=== PATIENT | male | born 1970 | race Caucasian/White ===

== ENCOUNTER → 2019-06-17 | Outpatient (CLI) | payer OTHER | END | disposition home or self-care (01) | LOC: LAB 17:40 → LAB SHORT 17:40 | DX: H10.33 Unspecified acute conjunctivitis, bilateral (principal) | CPT/HCPCS: 87070; 87186 ==

== ENCOUNTER 2020-07-29 21:58 | Observation (INO) | payer OTHER ==
[~2020-07-29] VITALS: Ht 180.3 cm; Wt 108.9 kg
[2020-07-29 23:17] LABS: BASOPHILS ABSOLUTE AUTO 0.05 K/mm3 (0.00-0.23); BASOPHILS PERCENT AUTO 1 % (0-2); EOSINOPHILS ABSOLUTE AUTO 0.18 K/mm3 (0.00-0.68); EOSINOPHILS PERCENT AUTO 2 % (0-6); Hematocrit 41.3 % (37.0-53.0); Hemoglobin 14.7 g/dL (13.5-17.5); IMMATURE GRAN ABSOLUTE AUTO 0.04 K/mm3 (0.00-0.10); IMMATURE GRAN PERCENT AUTO 0 % (0-1); LYMPHOCYTES ABSOLUTE AUTO 2.13 K/mm3 (0.84-5.20); LYMPHOCYTES PERCENT AUTO 21 % (21-46); MONOCYTES ABSOLUTE AUTO 0.56 K/mm3 (0.16-1.47); MONOCYTES PERCENT AUTO 6 % (4-13); Mean Corpuscular HGB 29.1 pg (26.0-34.0); Mean Corpuscular HGB Conc 35.6 g/dL (31.5-36.5); Mean Corpuscular Volume 82 fL (80-100); Mean Platelet Volume 9.9 fL (9.1-12.4); NEUTROPHILS ABSOLUTE AUTO 7.17 K/mm3 (1.96-9.15); NEUTROPHILS PERCENT AUTO 71 % (41-73); Platelet Count 211 K/mm3 (150-400); RDW Coefficient Variation 12.4 % (11.7-14.2); Red Blood Cell Count 5.05 M/mm3 (4.30-5.90); White Blood Cell Count 10.13 K/mm3 (4.00-11.30)
[2020-07-29 23:35] LABS: Alanine Aminotransfer (ALT/SGP 44 U/L (12-78); Albumin/Globulin Ratio 1.1 (0.8-1.8); Alk Phos 73 U/L (50-136); Anion Gap 6 mmol/L (6-16); Aspartate Aminotrans (AST/SGOT 46 U/L (12-37); Bilirubin, Total 1.8 mg/dL (0.1-1.0); Blood Urea Nitrogen 15 mg/dL (8-24); Bun/Creatinine Ratio 19.5 (12.0-20.0); CO2, Blood 27 mmol/L (21-32); Chloride, Blood 106 mmol/L (98-108); Creatinine, Blood 0.77 mg/dL (0.60-1.20); Globulin, Blood 3.5 g/dL (2.2-4.0); Glomerular Filtration Rate >60 (60-); Glucose, Blood 135 mg/dL (70-99); Potassium, Blood 3.4 mmol/L (3.5-5.5); Sodium, Blood 139 mmol/L (136-145); Total Protein, Blood 7.5 g/dL (6.4-8.2)
[2020-07-29 23:48] LABS: Source, Urine Voided
[2020-07-29 23:51] LABS: Blood, Urine Neg (Neg); Glucose Qualitative, Urine Neg (Neg); Ketones, Urine 3+ (Neg); Leukocyte Esterase, Urine 1+ (Neg); Nitrite, Urine Neg (Neg); Protein, Urine 2+ (Neg); Urobilinogen, Urine 2+ (Normal)
[2020-07-29 23:56] LABS: Appearance, Urine Clear (Clear); Bilirubin, Urine 1+ (Neg); Color, Urine Amber (P-Yellow)
[2020-07-30 00:05] LABS: Amorphous Light (0-Heavy); Bacteria Few /hpf; Mucus Mod (0-Heavy); Red Blood Cells, Urine Not Seen /hpf (0-2); Squamous Epithelial Cells Not Seen /hpf (Few); White Blood Cells, Urine 0-2 /hpf (0-5)
[2020-07-30 00:06] LABS: Hyaline Casts 0-2 /lpf (0-2)
--- NOTE | 2020-07-30 04:37 | NUR ---
PT TO ROOM 209 ABOUT 0400. A/O X4, IND IN ROOM. UP TO BATHROOM, VOIDED. CHANGED INTO HOSPITAL GOWN AND PJ PANTS. DENIES NEED FOR PAIN MEDS AT THIS TIME. DENIES N/V AT THIS TIME. IV FLUIDS STARTED PER ORDER. PT ORIENTED TO ROOM, CALL LIGHT, AND SAFETY PRECAUTIONS. AT BEDSIDE UPON ARRIVAL. BOTH PT AND SPOUSE DENY FURTHER NEEDS AT THIS TIME.
[2020-07-30 05:17] LABS: Influenza A, PCR NEGATIVE (NEGATIVE); Influenza B, PCR NEGATIVE (NEGATIVE); Resp Syncytial Virus, PCR NEGATIVE (NEGATIVE); SARS-Cov-2 (COVID-19) PCR, MMC NEGATIVE (NEGATIVE)
--- NOTE | 2020-07-30 09:15 | NUR ---
DR EPPS IN TO SEE PT.
--- NOTE | 2020-07-30 10:22 | NUR ---
History, Chart, Medications and Allergies reviewed before start of procedure.Patient confirms NPO status and agrees with scheduled surgery. Pre-Op teaching done. Pt verbalizes understanding.
--- NOTE | 2020-07-30 11:15 | NUR ---
PT TO OR AT APPROXIMATELY 1015
--- NOTE | 2020-07-30 17:04 | NUR ---
SUMMARY PT POD 0 LAP JHOANA. LAP INCISIONS W/DERMABOND CDI. TONIE DRAIN TO RLQ DRAINING SS FLUID. PT VSS. MAY ADAT. IV ABX INFUSING PER ORDERS. CALL LIGHT IN REACH. SPOUSE AT BEDSIDE.
[2020-07-31 04:14] LABS: Hematocrit 39.1 % (37.0-53.0); Hemoglobin 13.6 g/dL (13.5-17.5); Mean Corpuscular HGB 29.3 pg (26.0-34.0); Mean Corpuscular HGB Conc 34.8 g/dL (31.5-36.5); Mean Corpuscular Volume 84 fL (80-100); Platelet Count 208 K/mm3 (150-400); RDW Coefficient Variation 12.4 % (11.7-14.2); RDW Standard Deviation 37.4 fL (35.1-46.3); Red Blood Cell Count 4.64 M/mm3 (4.30-5.90); White Blood Cell Count 9.71 K/mm3 (4.00-11.30)
[2020-07-31 04:35] LABS: Alanine Aminotransfer (ALT/SGP 64 U/L (12-78); Albumin, Blood 3.4 g/dL (3.4-5.0); Alk Phos 62 U/L (50-136); Anion Gap 5 mmol/L (6-16); Aspartate Aminotrans (AST/SGOT 33 U/L (12-37); Blood Urea Nitrogen 9 mg/dL (8-24); Bun/Creatinine Ratio 13.5 (12.0-20.0); CO2, Blood 26 mmol/L (21-32); Calcium, Blood 8.6 mg/dL (8.5-10.1); Chloride, Blood 110 mmol/L (98-108); Creatinine, Blood 0.67 mg/dL (0.60-1.20); Globulin, Blood 3.3 g/dL (2.2-4.0); Glomerular Filtration Rate >60 (60-); Glucose, Blood 126 mg/dL (70-99); Potassium, Blood 3.9 mmol/L (3.5-5.5); Sodium, Blood 141 mmol/L (136-145); Total Protein, Blood 6.7 g/dL (6.4-8.2)
--- NOTE | 2020-07-31 06:00 | NUR ---
SHIFT SUMMARY POD1 LAP JHOANA, A/O X4, VSS, TOLERATING DIET, VOIDING WELL, PASSING FLATUS, PAIN MANAGED PER EMAR, AMBULATING, PLAN TO DC TODAY. NO ACUTE EVENTS THIS SHIFT. CALL LIGHT IN REACH, WILL CONTINUE TO MONITOR AND REPORT TO ONCOMING DAY RN.
--- NOTE | 2020-07-31 10:00 | NUR ---
PT GAVE STUDENT NURSE PERMISSION FOR CARE ON 07/31/20 AT 0700
[2020-07-31] MEDS ORDERED: DOCU100 PO (10:28)
[2020-07-31] MEDS ORDERED: HYDR1TAB94 PO (10:29)
--- NOTE | 2020-07-31 10:51 | NUR ---
DISCHARGED PT'S IVS DC'D, CATHETERS INTACT. REVIEWED DC INSTRUCTIONS W/PT AND SPOUSE; VERBALIZED UNDERSTANDING.
--- NOTE | 2020-07-31 11:01 | NUR ---
PT REPORTED SUDDEN ONSET OF CLAVICLE PAIN. DISCUSSED POSSIBILITY OF GAS MOVING UP W/PT MOBILIZING. PROVIDED ICE PACK. PT SITTING ON EDGE OF BED. ADVISED PT TO WORK ON RELAXATION BREATHS. SPOUSE AT BEDSIDE. CALL LIGHT IN REACH.
--- NOTE | 2020-07-31 12:20 | NUR ---
DISCHARGED AT 1130 PT REPORTED PAIN IMPROVED. DISCUSSED AMBULATION W/PT TO DISSIPATE GAS. PT EXPRESSED DESIRE TO BE DISCHARGED. LEFT UNIT IN WC W/POSSESSIONS AND DC PAPERWORK IN HAND, ACCOMPANIED BY SPOUSE.
== END 2020-07-31 11:27 | disposition home or self-care (01) ==
LOC: ER 21:58 → SURS 21:59 → ER 07-30 03:34 → SURS 07-30 03:34
PROVIDERS: Internal Medicine; Physician Assistant; Surgery; ADMIT Surgery
PROC: 0FT44ZZ Resection of Gallbladder, Percutaneous Endoscopic Approach (ICD-10-PCS; principal; 2020-07-30 11:00)
PROC: 0FC94ZZ Extirpation of Matter from Common Bile Duct, Percutaneous Endoscopic Approach (ICD-10-PCS; principal; 2020-07-30 11:00)
DX: K80.67 Calculus of gallbladder and bile duct with acute and chronic cholecystitis with obstruction (principal); J98.11 Atelectasis; Z88.0 Allergy status to penicillin; Z20.822 Contact with and (suspected) exposure to COVID-19
CPT/HCPCS: 0241U; 36415; 74176; 74181; 74300; 76705; 80053; 81001; 83690; 85025; 85027; 88304; 93005; 93010; 96365; 96366; 96375; 96376; 99285-25; A9270; A9270-GY; C1729; G0378; J0690; J0692; J0696; J1100; J1170; J1885; J2250; J2405; J2704; J3010; J7030; J7120

== ENCOUNTER 2021-05-27 08:59 | Day surgery (SDC) | payer OTHER ==
[~2021-05-27] VITALS: Ht 180.3 cm; Wt 110.5 kg
[~2021-05-27 08:59] MED LIST: DOCU100 PO; HYDR1TAB94 PO
--- NOTE | 2021-05-27 09:59 | NUR ---
05/27/21 0959 Kady Osborne History, Chart, Medications and Allergies reviewed before start of procedure. Patient confirms NPO status and agrees with scheduled surgery. 3-LEAD EKG REVIEWED WITH PHYSICIAN PRIOR TO START OF PROCEDURE. MONITOR INTACT WITH CONTINUOUS PULSE OXIMETRY AND INTERMITTENT BP. PATIENT DETERMINED TO BE ASA APPROPRIATE FOR PROPOFOL SEDATION PRIOR TO START OF PROCEDURE BY DR. LÓPEZ.
--- NOTE | 2021-05-27 11:08 | NUR ---
Discharge instructions reviewed with patient. Patient verbalizes understanding. Copy given to patient to take home. Patient up to Ambulate independently. Gait steady. Discharged via wheelchair to private car for ride home.
== END 2021-05-27 11:10 | disposition home or self-care (01) ==
LOC: ORSCMMR 08:59 → ORD 10:00 → ORSCMMR 10:00
PROVIDERS: Internal Medicine Gastroenterology
PROC: 0DBN8ZX Excision of Sigmoid Colon, Via Natural or Artificial Opening Endoscopic, Diagnostic (ICD-10-PCS; principal; 2021-05-27 10:00)
PROC: 0DBL8ZX Excision of Transverse Colon, Via Natural or Artificial Opening Endoscopic, Diagnostic (ICD-10-PCS; principal; 2021-05-27 10:00)
PROC: 0DBM8ZX Excision of Descending Colon, Via Natural or Artificial Opening Endoscopic, Diagnostic (ICD-10-PCS; principal; 2021-05-27 10:00)
DX: K62.5 Hemorrhage of anus and rectum (principal); Z83.71 Family history of colonic polyps; D12.4 Benign neoplasm of descending colon; D12.3 Benign neoplasm of transverse colon; D12.5 Benign neoplasm of sigmoid colon
CPT/HCPCS: 88305; J2704; J7120